=== PATIENT | female | born 1995 | race Caucasian/White ===

== ENCOUNTER 2017-01-28 13:03 | Emergency (ER) | payer MEDICAID ==
[~2017-01-28] VITALS: Ht 157.5 cm; Wt 63.0 kg
[2017-01-28 13:04] VITALS: BP 137/66
[2017-01-28] MEDS ORDERED: IBUPROFEN 600MG TABLET PO ONE (13:45)
== END 2017-01-28 14:45 | disposition home or self-care (01) ==
LOC: ER 13:03
DX: S93.402A Sprain of unspecified ligament of left ankle, initial encounter (principal); X58.XXXA Exposure to other specified factors, initial encounter; Y93.89 Activity, other specified; Y92.89 Other specified places as the place of occurrence of the external cause; Y99.8 Other external cause status
CPT/HCPCS: 29515; 73610; 99284

== ENCOUNTER 2017-06-10 01:47 | Emergency (ER) | payer MEDICAID ==
[~2017-06-10] VITALS: Ht 157.5 cm; Wt 64.0 kg
[2017-06-10 05:52] VITALS: BP 121/83
[2017-06-10] MEDS ORDERED: SODIUM CHLORIDE 0.9% 1,000 ML IV ONE (06:52)
[2017-06-10] MEDS ORDERED: ONDANSETRON HCL 4MG/2ML VIAL IV STA (06:52)
[2017-06-10] MEDS ORDERED: ALBUTEROL (0.083%) 2.5MG/3ML NEB HHN ONE (07:00)
[2017-06-10] MEDS ORDERED: FAMOTIDINE 20MG/2ML VIAL IV ONE (07:00)
[2017-06-10 07:08] LABS: BASOPHILS % 0.5 % (0.0-2.0); HEMATOCRIT. 41.5 % (36.0-48.0); HEMOGLOBIN. 14.2 g/dL (12.0-16.0); LYMPHOCYTES % 42.7 % (20.0-50.0); MEAN CORPUSCULAR HEMOGLOBIN 29.1 pg (28.0-32.0); MEAN CORPUSCULAR VOLUME 85.2 fL (81.0-99.0); MEAN PLATELET VOLUME 8.6 fl (7.4-10.4); MONOCYTES % 5.1 % (2.0-8.0); NEUTROPHILS % 47.7 % (40.0-76.0); PLATELET 216 x1000/uL (130-400); RED BLOOD CELL COUNT 4.87 mill/uL (4.2-5.4); RED CELL DISTRIBUTION WIDTH 13.4 % (11.6-14.6)
[2017-06-10 07:11] LABS: CLARITY URINE CLOUDY (CLEAR); COLOR URINE YELLOW (YELLOW); KETONES URINE NEGATIVE (NEGATIVE); LEUKOCYTE ESTERASE URINE TRACE (NEGATIVE); NITRITE URINE NEGATIVE (NEGATIVE); OCCULT BLOOD URINE NEGATIVE (NEGATIVE); PH URINE 5.5 (4.5-8.0); PROTEIN URINE NEGATIVE (NEGATIVE); UROBILINOGEN URINE 0.2 E.U./dL (0.2-1.0)
[2017-06-10 07:22] LABS: HCG SCREEN NEGATIVE
[2017-06-10 07:33] LABS: CHLORIDE 111 mEq/L (98-107)
[2017-06-10 07:49] LABS: CARBON DIOXIDE 25 mEq/L (21-32)
== END 2017-06-10 09:31 | disposition home or self-care (01) ==
LOC: ER 01:47
DX: J06.9 Acute upper respiratory infection, unspecified (principal); R19.7 Diarrhea, unspecified; R11.2 Nausea with vomiting, unspecified; R07.89 Other chest pain
CPT/HCPCS: 36415; 71010; 80053; 81001; 84703; 85025; 87804; 94640; 96361; 96374; 96375; 99285; J2405; J3490; J7030; J7611; Z7610